=== PATIENT | female | born 1975 | race Caucasian/White ===

== ENCOUNTER 2025-03-10 06:06 | Inpatient (IN) ==
--- NOTE | 2025-02-20 12:57 | PAT Medication Instructions ---
Medication Instructions Date of Service February 20, 2025 Home Medications cholecalciferol (vitamin D3) 25 mcg (1,000 unit) tablet (Vitamin D3) 25 mcg PO DAILY levothyroxine 50 mcg tablet (Synthroid) 50 mcg PO QAM lisinopril 10 mg tablet 10 mg PO QAM loratadine 10 mg tablet (Claritin) 10 mg PO DAILY PRN Allergy Symptoms metformin 500 mg tablet 500 mg PO QAM tirzepatide 7.5 mg/0.5 mL subcutaneous pen injector (Mounjaro) 7.5 mg subcut WK DO NOT take the morning of surgery cholecalciferol (vitamin D3) 25 mcg (1,000 unit) tablet (Vitamin D3) 25 mcg PO DAILY lisinopril 10 mg tablet 10 mg PO QAM loratadine 10 mg tablet (Claritin) 10 mg PO DAILY PRN Allergy Symptoms metformin 500 mg tablet 500 mg PO QAM Take morning of surgery With a small sip of water, OTHERWISE NOTHING TO EAT OR DRINK AFTER MIDNIGHT: levothyroxine 50 mcg tablet (Synthroid) 50 mcg PO QAM Take evening before surgery loratadine 10 mg tablet (Claritin) 10 mg PO DAILY PRN Allergy Symptoms (if needed) STOP 7 days prior to surgery tirzepatide 7.5 mg/0.5 mL subcutaneous pen injector (Mounjaro) 7.5 mg subcut WK Other Notes If you have any questions please call us at [phone] or [phone] or [phone] or [phone]
--- NOTE | 2025-02-24 13:27 | Anesthesiology Consultation ---
Date of Service February 24, 2025 Assessment & Plan (1) Encounter for pre-operative examination: Chart Review Chart Review: Acceptable Risk for Surgery (pending surgeon ordered PCP clearance ) and Patient seen in Pre Admission Testing - Awaiting PCP clearance 02/28/25 (Dr Robert Mackey- JEREMY Santacruz)- please fax preop testing for PCP review - Check BSG AM DOS - Patient informed to stop Mounjaro 7 days prior to surgery. Patient usually takes Mounjaro on Fridays or Mondays. Recommended last dose of Mounjaro be scheduled 02/28/25. Will be off Mounjaro x 10 days prior to DOS on 03/10/25 Per PAT appt on 02/24/25, no recent illness/disease exposures, illness related symptoms, or recent illness/disease positive tests. Will leave to surgeon's discretion if preop Covid testing needed History Surgery Operation Date: 03/10/25 10:05 Proposed Procedures p L4-S1 Decompression and Fusion - Kb Fierro, Height/Weight Height: 5 ft 3 in Weight: 120.7 kg Allergies Allergy/AdvReac Type Severity Reaction Status Date / Time cefuroxime [From Ceftin] Allergy Mild Rash Verified 02/20/25 11:49 Medications Home Medications Medication Instructions Recorded Confirmed Last Taken cholecalciferol (vitamin D3) 25 25 mcg PO DAILY 02/20/25 02/20/25 Unknown mcg (1,000 unit) tablet (Vitamin D3) levothyroxine 50 mcg tablet 50 mcg PO QAM 02/20/25 02/20/25 Unknown (Synthroid) lisinopril 10 mg tablet 10 mg PO QAM 02/20/25 02/20/25 Unknown loratadine 10 mg tablet (Claritin) 10 mg PO DAILY PRN Allergy Symptoms 02/20/25 02/20/25 Unknown metformin 500 mg tablet 500 mg PO QAM 02/20/25 02/20/25 Unknown tirzepatide 7.5 mg/0.5 mL 7.5 mg subcut WK 02/20/25 02/20/25 Unknown subcutaneous pen injector (Mounjaro) Past Medical History Medical History Diabetes mellitus, type 2 Hypertension Hypothyroidism Nodule of right lung - followed with lung specialist in [place] (now only needs to follow PRN)--just monitoring- small Osteoarthritis Exercise / Class Metabolic Activity II 4-5 Yardwork/Stairs/Walk up hill (one flight of stairs - no chest pain or SOB ) Past Family History Family History Other No family history of adverse response to anesthesia Past Surgical History Surgical History History of bilateral tubal ligation History of open reduction and internal fixation (ORIF) procedure left ankle--hardware in place History of tonsillectomy History of tooth extraction History of total right knee replacement (TKR) (09/2023) @ [facility] History of wisdom tooth extraction Past Anesthesia History No Hx of Anesthesia Complications and No Family Hx of Anesthesia Complications History of PONV No Hx of PONV and No Hx of Motion Sickness Social History Smoking Status: Current every day smoker Smoking cigarettes per day: 10 cigs a day (advised on policy) Hx Alcohol Use: Yes alcohol intake frequency: holidays/special occasions only Hx Substance Use: No substance use type: does not use Review of Systems - Cough- occasional- chronic/stable- usually due to dry air Patient denies chest pain, shortness of breath, dyspnea on exertion, reflux, wheezing, palpitations. No hx of seizures, stroke, NM, apnea/snoring. No hx of blood clots or blood transfusions Physical Exam Vital Signs VITALS BP 136/83 P 89 TEMP 97.4 SP02 95% RESP 16 Constitutional no acute distress ENMT Mouth: no TMJ clicking Thyromental Distance: > or= 3.5 Finger Breadths (3.5) Mallampati Class: III Missing molars/side teeth Neck + thick neck; neck extension not limited Respiratory normal respiratory effort; no respiratory distress Auscultation: lungs clear to auscultation bilaterally and + diminished lung sounds (generalized throughout ); no wheezes Cardiovascular Rate/Rhythm: regular rate and regular rhythm Heart Sounds: no murmur Vessels: no carotid bruit Musculoskeletal Spine: + pain with cervical ROM Extremities: extremities normal to inspection Psychiatric Orientation: alert Lab Results Anesthesia Preop Results Results Anesthesia Widget: WBC 7.30 K/ul (4.8-10.8) 02/24/25 Hgb 14.0 g/dl (12.0-16.0) 02/24/25 Hct 42.6 % (37.0-47.0) 02/24/25 Plt 256 K/uL (130-400) 02/24/25 Na 137 mmol/L (136-145) 02/24/25 K 4.2 mmol/L (3.5-5.1) 02/24/25 Cl 105 mmol/L (98-107) 02/24/25 CO2 25 mmol/L (21-32) 02/24/25 BUN 12 mg/dl (6-23) 02/24/25 Creat 0.76 mg/dl (0.6-1.2) 02/24/25 Glucose Level 97 mg/dl (70-99(Fasting)) 02/24/25 PT 10.3 Seconds (9.0-12.0) 02/24/25 PTT 28 Seconds (21-31) 02/24/25 INR 1.0 (0.9-1.1) 02/24/25 HA1c 6.2 % (4.5-5.6) H 02/24/25 Urine Color Yellow 02/24/25 Urine Appearance Clear (Clear) 02/24/25 Urine pH 7.0 (4.5-7.5) 02/24/25 Urine Specific [place] 1.021 (1.000-1.030) 02/24/25 Urine Protein Negative (Negative) 02/24/25 Urine Glucose (UA) Negative (Negative) 02/24/25 Urine Ketones Negative (Negative) 02/24/25 Urine Blood 1+ (Negative) H 02/24/25 Urine Nitrite Negative (Negative) 02/24/25 Urine Bilirubin Negative (Negative) 02/24/25 Urine Urobilinogen Negative (Negative) 02/24/25 Urine Leukocyte Esterase Negative (Negative) 02/24/25 Urine WBC (Auto) 0-5 /hpf (0-5) 02/24/25 Urine RBC (Auto) 11-20 /hpf (0-2) H 02/24/25 Urine Hyaline Casts (Auto) 0-2 /lpf (0-2) 02/24/25 Urine Epithelial Cells (Auto) 0-2 /hpf (0-2) 02/24/25 Urine Bacteria (Auto) None Seen (None Seen) 02/24/25 Blood Type A Positive 02/24/25 Antibody Screen NEGATIVE 02/24/25 Testing Electrocardiogram Date: 02/24/25 Findings: + NSR @ (88bpm) Normal EKG per cardio Chest X-Ray Date: 02/24/25 Findings: + NAD FINDINGS: Heart size and pulmonary vasculature are normal. There is linear opacity at the left mid lung, likely scarring or atelectasis. No other consolidation or pleural effusion. No pneumothorax. Other Testing Chest CT 01/10/25= Stable scarring in the left lung. Millimetric pulmonary nodule stable. Consider 1 year follow-up per [facility] guidelines. Mild emphysema.
[2025-03-10] MEDS: LR 15ML/HR IV SCH (06:49)
[2025-03-10] MEDS: ACETAMINOPHEN 500 MG TAB PO SCH (06:49)
[2025-03-10] MEDS: CeleBREX 200 MG CAP PO SCH (06:49)
[2025-03-10] MEDS: GABAPENTIN 900 MG DOSE PO SCH (06:49)
[2025-03-10] MEDS: LR 60ML/HR IV SCH (06:50)
[2025-03-10] MEDS ORDERED: PROMETHAZINE HCL 6.25 MG in SODIUM CHLORIDE 0.9% 50 ML IV PRN (06:51)
[2025-03-10] MEDS ORDERED: ONDANSETRON INJ 2 MG/ML 2 ML VIAL IV PRN ×2 (06:51→11:27)
[2025-03-10] MEDS ORDERED: ATROPINE SULFATE 0.1 MG/ML 10ML SYR IV PRN (06:51)
[2025-03-10] MEDS ORDERED: HYDROmorphone INJ 1 MG/ML SYRINGE IV PRN ×2 (06:51→11:27)
[2025-03-10 06:52] LABS: Pregnancy Test, Serum Negative (Negative)
[2025-03-10] MEDS ORDERED: MIDAZOLAM HCL 1 MG/ML 2ML VIAL ONE (07:10)
[2025-03-10] MEDS ORDERED: ONDANSETRON INJ 2 MG/ML 2 ML VIAL ONE (07:10)
[2025-03-10] MEDS ORDERED: DEXAMETHASONE SOD INJ 4 MG/ML VIAL ONE (07:10)
[2025-03-10] MEDS ORDERED: PROPOFOL IV EMULSION 10 MG/ML 20 ML VIAL IV ONE ×2 (07:10→09:56)
[2025-03-10] MEDS ORDERED: LIDOCAINE 2% 2 ML VIAL/AMP(20MG/ML) INFIL ONE ×2 (07:10)
[2025-03-10] MEDS ORDERED: ROCURONIUM BROMIDE 10 MG/ML 5 ML VIAL IV ONE ×2 (07:11)
[2025-03-10] MEDS: BUPIVACAINE/EPINEPHRINE 0.25% 1:200,000 30 ML VIAL ONE (07:15)
--- NOTE | 2025-03-10 07:42 | History & Physical Bridge Note ---
Date of Service March 10, 2025 History & Physical Bridge Note I have examined the patient, reviewed the History & Physical and in the interval since the performance of the History & Physical I have noted the following changes of clinical significance: no changes noted
--- NOTE | 2025-03-10 07:43 | History & Physical Report ---
Date of Service March 10, 2025 Assessment & Plan (1) Multilevel lumbosacral spondylosis with radiculopathy: Plan: L4-S1 decompression and fusion History of Present Illness Chief Complaint: Back and leg pain Primary Care Provider: Robert Mackey This is a 49-year-old female presents with chronic persistent back and leg pain after failing course of nonoperative care is here for surgical intervention. Allergies Allergy/AdvReac Type Severity Reaction Status Date / Time cefuroxime [From Ceftin] Allergy Mild Rash Verified 02/20/25 11:49 Home Medications Medication Instructions Recorded Confirmed Type cholecalciferol (vitamin D3) 25 25 mcg PO DAILY 02/20/25 03/10/25 History mcg (1,000 unit) tablet (Vitamin D3) levothyroxine 50 mcg tablet 50 mcg PO QAM 02/20/25 03/10/25 History (Synthroid) loratadine 10 mg tablet (Claritin) 10 mg PO DAILY PRN Allergy Symptoms 02/20/25 03/10/25 History metformin 500 mg tablet 500 mg PO QAM 02/20/25 03/10/25 History tirzepatide 7.5 mg/0.5 mL 7.5 mg subcut WK 02/20/25 03/10/25 History subcutaneous pen injector (Mounjaro) losartan 50 mg tablet 50 mg PO QAM 03/04/25 03/10/25 History Past Med/Surg History Problem List (Updated 03/10/25 @ 07:43 by Kb Fierro, DO) Multilevel lumbosacral spondylosis with radiculopathy Encounter for pre-operative examination Medical History Diabetes mellitus, type 2 Hypertension Hypothyroidism Nodule of right lung - followed with lung specialist in [place] (now only needs to follow PRN)--just monitoring- small Osteoarthritis Surgical History History of bilateral tubal ligation History of open reduction and internal fixation (ORIF) procedure left ankle--hardware in place History of tonsillectomy History of tooth extraction History of total right knee replacement (TKR) (09/2023) @ [facility] History of wisdom tooth extraction Family History Other No family history of adverse response to anesthesia Social History Smoking Status: Current every day smoker Tobacco Type: Cigarettes Cigarettes Per Day: 10 cigs a day (advised on policy); Second Hand Exposure: No; Tobacco Cessation Education Requested by Patient: No Hx Alcohol Use: Yes Hx Substance Use: No Preferred Language: Beninese Communication Ability: Effective Litigation Counsel Required: No Beliefs That Will Affect Care: None Current Living Situation: Significant Other Current Living Situation Comment: Lives with boyfriend Other Information That Helps Us Care for You: No Feels Safe at Home: Yes Safety Concerns: Feels Safe At This Time Assistive Devices: None Physical Exam Physical Exam: Patient is alert and oriented Heart regular rhythm Lungs clear Results & Data Results & Data Vital Signs (Past 12 Hours) Vital Signs Temp Pulse Resp BP Pulse Ox O2 Del Method 03/10/25 06:33 36.9 C 98 H 18 142/91 H 92 Room Air
[2025-03-10] MEDS ORDERED: ePHEDrine sulfate 50 MG/5 ML SYR ONE (08:09)
[2025-03-10] MEDS ORDERED: PHENYLEPHRINE 100MCG/ML 5ML SYR ONE ×2 (08:10→08:36)
[2025-03-10] MEDS: ceFAZolin 330 MG/ML 1 GM VIAL ONE (08:30)
[2025-03-10] MEDS ORDERED: SUGAMMADEX SODIUM 200 MG/2 ML VIAL IV ONE (08:35)
[2025-03-10] MEDS: FLOSEAL HEMOSTATIC MATRIX 10ML TOP ONE (09:49)
--- NOTE | 2025-03-10 10:09 | Operative Report ---
Post Operative Report Pre & Post Diagnosis Operation Date: 03/10/25 07:45 Pre-Op Diagnosis: #1 multilevel lumbosacral spondylosis with radiculopathy #2 lumbar spondylolisthesis L4-5 #3 lumbar disc herniation L5-S1 #4 morbid obesity Post-Op Diagnosis: Same I identified the patient and participated in the time-out.: Yes Procedure Operation Date: 03/10/25 07:45 Actual Procedures #1 lumbar decompression bilaterally facetectomies and foraminotomies L3-L4, L4- L5 and L5-S1. #2 posterior spinal fusion L4-S1. #3 placement of posterior instrumentation L4-S1 using Harris. #4 interbody fusion L4-L5 L5-S1. #5 placement of Spira 15 x 26 mm x 2 at L4-L5 and 14 x 26 mm x 2 at L5-S1. #6 placement locally harvested morselized autograft and posterior gutters. #7 placement of Proteus combined with Koros in the posterior lateral gutters and os design interbody space. #8 application of versa wrap of the exposed dura. Surgeon Kb Fierro, DO Senior Web Architect Lori Aviles Estimated Blood Loss 250 Findings See Below The patient is 5 foot 3 weighing 119 kg with a BMI in excess of 46. Patient's body habitus and surgical pathology created significant technical difficulty with positioning exposure and the procedure itself. This had at least 40% increased operative time. Recommending a modifier 22. Specimens None Indications This is a 49-year-old female who presents publish diagnosis of failing course of nonoperative care is here for surgical invention. Description of Procedure Patient was met with identified informed consent obtained. Patient was then taken to the operative suite underwent patient placed in a prone position on the Slade table atop the Hamzah frame. All bony promises well-padded eyes inspected to ensure no external pressure placed upon them. This point the lumbar spine was prepped and draped in normal sterile fashion. Sharp dissection with the assistance of Bovie cautery performed down to and exposing the lamina and transverse processes of L4-5 and sacral ala bilaterally. From a [place] 5 fashion complete laminectomy of L5 L4 and partial laminectomy of L3 was performed. Bilateral medial facetectomies and foraminotomies were performed addressing severe neural compression as well as addressing the massive disc herniation at L5-S1 on the right. Patient's body habitus did create technical difficulty throughout the procedure required deepest retractors for longer instruments which were ordered to perform the procedure. Pedicle screws were then placed in L4-L5 and S1 levels bilaterally with assistance of fluoroscopy and appropriate size alan contoured and placed. By way of a transforaminal approach right discectomy of L5-S1 was performed endplates created to subcortical bleeding bone and a 14 x 26 mm Spira cage tapped into position. Then proceeded to the left transforaminal region at L5-S1. Again discectomy performed. Endplates guided to subcortical bleeding bone and a second 14 x 26 mm Spira cage tapped into position. Then proceeded L4-L5 belly the transforaminal approach on the left discectomy was performed. Endplates guided to subcortical bleeding bone. A 15 x 26 mm Spira cage tapped into position. Then proceeded to the right transforaminal region at L4-L5. Again discectomy performed. Endplates guided to subcortical bleeding bone. A second 15 x 26 mm Spira cage tapped in position. Please note all cages were packed with os design bone graft. The rods then compressed locked into position bilaterally. The transverse processes of L4-L5 and sacral ala burred to subcortical bleeding bone. Proteus combined with Koros and local autograft placed in posterolateral gutters. Versa wrap placed of exposed dura. 15 round JUANY drain inserted. The incision was then closed with 1 Vicryl in the fascia 2-0 Vicryl subcutaneously and 4-0 Monocryl for final skin closure. Steri-Strips sterile dressing placed. Patient waken taken PACU stable condition. Please note Lori Aviles was present of the entire procedure involved in patient positioning complex portion of the surgery and final skin closure. I attest to the content of the Intraoperative Record and any orders documented therein. Any exceptions are noted below.
--- NOTE | 2025-03-10 10:59 | Fluoroscopy Report ---
FL lumbar spine 2-3V CLINICAL HISTORY: L4-S1 DECOMPRESSION AND FUSION COMPARISON STUDY: None FLUOROSCOPY TIME: 17 seconds FLUOROSCOPY IMAGES: 2 EXPOSURE DOSE: 20 mGy FINDINGS: Fluoroscopy was provided for lower lumbar fusion. IMPRESSION: Intraoperative fluoroscopy. ACT 112: Negative or not required by law. Electronically signed by: Esequiel Carrillo M.D. 03/10/2025 10:57 AM
[2025-03-10] MEDS ORDERED: HYDROmorphone INJ 0.5 MG/0.5 ML SYR IV PRN (11:27)
[2025-03-10] MEDS ORDERED: PHARMACY GLYCEMIC MGMT CONSULT PRN (11:27)
[2025-03-10] MEDS ORDERED: LORATADINE 10 MG TAB PO PRN (11:27)
[2025-03-10] MEDS ORDERED: SOD PHOSPHATE/SOD BIPHOSPHATE ENEMA 132 ML BTL PR PRN (11:27)
[2025-03-10] MEDS ORDERED: DO NOT ADMINISTER PNEUMOCOCCAL VACCINE PRN (11:27)
[2025-03-10] MEDS ORDERED: NALOXONE HCL 0.4 MG/1 ML VIAL/CARP IV PRN (11:27)
[2025-03-10] MEDS ORDERED: ACETAMINOPHEN 1,000 MG/100 ML VIAL IV PRN (11:27)
[2025-03-10] MEDS ORDERED: DO NOT ADMINISTER FLU VACCINE PRN (11:27)
[2025-03-10] MEDS ORDERED: LORazepam Inj 0.5 MG in SYRINGE 0.25 ML IV PRN (11:27)
[2025-03-10] MEDS ORDERED: LORazepam 0.5 MG TAB PO PRN (11:27)
[2025-03-10] MEDS ORDERED: PROMETHAZINE 12.5 MG/50.5 ML BAG IV PRN (11:27)
[2025-03-10] MEDS ORDERED: NON-FORMULARY MEDICATION (Tirzepatide [Mounjaro] 7.5 mg/0.5 mL Pen Injector) SQ SCH (11:27)
[2025-03-10] MEDS ORDERED: diphenhydrAMINE Capsule 25 MG CAP PO PRN (11:27)
[2025-03-10] MEDS ORDERED: MAGNESIUM HYDROXIDE SUSP 30 ML UDC PO PRN (11:27)
[2025-03-10] MEDS ORDERED: METOCLOPRAMIDE HCL INJ 5 MG/ML 2 ML VIAL IV PRN (11:27)
[2025-03-10] MEDS ORDERED: ONDANSETRON 4 MG OD TAB PO PRN (11:27)
[2025-03-10] MEDS ORDERED: ACETAMINOPHEN 500 MG TAB PO PRN (11:27)
[2025-03-10] MEDS ORDERED: ALUMINUM/MAGNESIUM SUSP 30 ML UDC PO PRN (11:27)
--- NOTE | 2025-03-10 11:45 | Hospitalist Consultation ---
Date of Consultation March 10, 2025 Assessment & Plan (1) Multilevel lumbosacral spondylosis with radiculopathy: (2) S/P spinal surgery: Patient is a 49-year-old female with past medical history significant for DM type II, hypothyroidism, vitamin D deficiency, peripheral vascular disease, asthma, tobacco use and HTN who is being seen in consultation for routine postoperative medical management after undergoing elective L4-S1 decompression and fusion performed by Dr. Fierro earlier today. Per primary service for pain control, wound care, anticoagulation and activities. Continue incentive spirometry, PT/OT when appropriate as per primary service. Monitor H/H for acute blood loss anemia and transfuse blood products PRN. Preop Hgb = 14. (3) Hypertension: Borderline hypotensive postop. Hold losartan for now and reassess in AM. (4) Diabetes mellitus, type 2: Hold home metformin, Mounjaro. SSI regimen while inpatient. Hgb A1c 6.2% last month. Follow BSG checks ACHS. (5) Hypothyroidism: Continue levothyroxine, check TSH/free T4 in AM. (6) Tobacco use disorder: Smokes at least 1ppd for "several years." Requesting nicotine patch - ordered. Cessation encouraged. (7) Vitamin D deficiency: Continue vitamin D supplementation, check 25-OH vit D level in AM. DVT Prophylaxis: As per primary service Code Status: FULL CODE PCP: Robert Mackey DO [[place]] Disposition: DC planning as per primary service Thank you for this consultation. We will follow the patient with you during their hospital stay. You can reach a member of the [facility] 19/12 via [employer]. Patient seen in collaboration with Dr. Gonzalez. Please see addendum. I spent a total of 40 minutes coordinating, documenting, and providing care for this patient excluding time spent in the performance of separately billed services or time spent by another provider/QHP. This included personally reviewing all current laboratories and imaging studies, medical reconciliation, outpatient chart review and discussion with specialists. This chart was completed in part utilizing Speech Voice Recognition Software. Grammatical errors, random word insertions, pronoun errors, and incomplete sentences are an occasional consequence of this system due to software limitations, ambient noise, and hardware issues. Any formal questions or concerns about the content, text, or information contained within the body of this dictation should be directly addressed to the provider for clarification. Supervising Physician Co-Signing Physician Notes Patient seen and examined at bedside. POD 0 from L4-S1 decompression. Doing well post op, some pain. On exam, strong tobacco odor noted, drain noted draining blood appropriately, s/p procedure. Patient POD 0 from lumbar decompression. Trend Hgb, WBC, creatinine post op. Incentive spirometer, nicotine patch ordered. Disposition per ortho spine, appreciate opportunity to assist with patient care. I have seen and discussed the case with the collaborating advanced practitioner. I agree with the above H&P. I have reviewed and confirmed the patients medical history, the findings on physical examination, and the patients diagnosis and treatment plan with Landry ROSE and agree with the information documented. I spent a total of 20 minutes coordinating, documenting, and providing care for this patient excluding time spent in the performance of separately billed services. All of the aforementioned completed outside of collaborating with the assigned advanced practitioner for a full treatment plan. I have reviewed the advanced practitioner's documentation, and I agree with, and take responsibility for the plan of care History of Present Illness Reason for Consultation: Routine postoperative medical management Requesting Physician: Kb Fierro DO Attending Physician: Kb Fierro DO History of Present Illness Patient is a 49-year-old female with past medical history significant for DM type II, hypothyroidism, vitamin D deficiency, peripheral vascular disease, asthma, tobacco use and HTN who is being seen in consultation for routine postoperative medical management after undergoing elective L4-S1 decompression and fusion performed by Dr. Fierro earlier today. History obtained from the patient and associated chart review. Feeling well postoperatively, pain well-controlled. BLE paresthesias that were present prior to surgery have now resolved. Tolerating sips of water without issue. Denies any chest pain, SOB, N/V or abdominal pain. Has Rodriguez catheter in place. Has not noticed that she is passing any flatus yet. Describes mild throat pain from ET tube placement. Smokes 1ppd. Requesting nicotine patch. Rare alcohol use. Allergies Allergy/AdvReac Type Severity Reaction Status Date / Time cefuroxime [From Ceftin] Allergy Mild Rash Verified 02/20/25 11:49 Home Medications Medication Instructions Recorded Confirmed Type cholecalciferol (vitamin D3) 25 25 mcg PO DAILY 02/20/25 03/10/25 History mcg (1,000 unit) tablet (Vitamin D3) levothyroxine 50 mcg tablet 50 mcg PO QAM 02/20/25 03/10/25 History (Synthroid) loratadine 10 mg tablet (Claritin) 10 mg PO DAILY PRN Allergy Symptoms 02/20/25 03/10/25 History metformin 500 mg tablet 500 mg PO QAM 02/20/25 03/10/25 History tirzepatide 7.5 mg/0.5 mL 7.5 mg subcut WK 02/20/25 03/10/25 History subcutaneous pen injector (Mounjaro) losartan 50 mg tablet 50 mg PO QAM 03/04/25 03/10/25 History Patient History Medical History Osteoarthritis Hypertension Diabetes mellitus, type 2 Hypothyroidism Nodule of right lung - followed with lung specialist in [place] (now only needs to follow PRN)--just monitoring- small Surgical History History of bilateral tubal ligation History of open reduction and internal fixation (ORIF) procedure left ankle--hardware in place History of wisdom tooth extraction History of tooth extraction History of tonsillectomy History of total right knee replacement (TKR) (09/2023) @ [facility] Family History Other No family history of adverse response to anesthesia Social History Smoking Status: Current every day smoker Tobacco Type: Cigarettes Cigarettes Per Day: 10 cigs a day (advised on policy); Second Hand Exposure: No; Tobacco Cessation Education Requested by Patient: No Hx Alcohol Use: Yes Hx Substance Use: No Preferred Language: Monegasque Communication Ability: Effective Clinical Staff Pharmacist Required: No Beliefs That Will Affect Care: None Current Living Situation: Significant Other Current Living Situation Comment: Lives with boyfriend Other Information That Helps Us Care for You: No Feels Safe at Home: Yes Safety Concerns: Feels Safe At This Time Assistive Devices: None Review of Systems Review of Systems: At least ten systems reviewed and negative, except as noted in the HPI. Physical Exam Physical Exam: General: Obese F, NAD, sitting up in bed, A&Ox3, significant other at bedside, strong tobacco odor in room HEENT: Normocephalic, atraumatic, external ear and nose normal, oropharynx normal Respiratory: Normal respiratory effort, CTAB Cardiovascular: RRR, normal peripheral pulses, no BLE edema, SCDs/TEDs in place on BLE Abdomen/GI: Normal bowel sounds, soft, nontender to palpation in all quadrants : Rodriguez catheter intact and draining clear yellow urine Extremities/Musculoskeletal: No cyanosis or clubbing, able to actively move all extremities, surgical dressing C/D/I, JUANY drain x1 intact and draining serosanguineous output Neurologic: No overt focal deficits, CN's II-XI not formally tested but appear grossly intact bilaterally Results & Data Results & Data Vital Signs (Past 12 Hours) Vital Signs Temp Pulse Resp BP Pulse Ox O2 Del Method O2 Flow Rate 03/10/25 10:55 88 13 135/74 98 Nasal Cannula 2 03/10/25 10:45 36.7 C 87 17 129/71 99 Oxymask 2 03/10/25 10:35 96 H 18 109/79 99 Oxymask 4 03/10/25 10:25 100 H 20 101/75 98 Oxymask 8 03/10/25 10:19 36.9 C 106 H 12 116/71 97 Oxymask 8 03/10/25 06:33 36.9 C 98 H 18 142/91 H 92 Room Air Diagnostic Findings Lumbar Spine X-Ray 03/10/25 07:45 FL lumbar spine 2-3V CLINICAL HISTORY: L4-S1 DECOMPRESSION AND FUSION COMPARISON STUDY: None FLUOROSCOPY TIME: 17 seconds FLUOROSCOPY IMAGES: 2 EXPOSURE DOSE: 20 mGy FINDINGS: Fluoroscopy was provided for lower lumbar fusion. IMPRESSION: Intraoperative fluoroscopy. ACT 112: Negative or not required by law. Electronically signed by: Esequiel Carrillo M.D. 03/10/2025 10:57 AM
[2025-03-10] MEDS: SODIUM CHLORIDE 0.9% 1,000 ML IV SCH (11:46)
[2025-03-10] MEDS: LANTUS PER UNIT CHARGE SC ONE (12:40)
[2025-03-10] MEDS: NICOTINE 21 MG/24 HR TDSY TD SCH (12:40)
[2025-03-10] MEDS: CLINDAMYCIN/D5W 600 MG/50 ML BAG IV SCH (12:40)
--- NOTE | 2025-03-10 12:57 | Anesthesiology Progress Note ---
Date of Service March 10, 2025 Anesthesia Post Procedure Vital Signs Vital Signs: Temp Pulse Pulse Resp BP BP Pulse Ox 03/10/25 12:46 36.5 C 91 H 17 112/71 92 03/10/25 11:47 36.5 C 89 16 110/72 94 03/10/25 11:45 03/10/25 11:27 36.4 C L 86 16 116/77 94 03/10/25 10:55 88 13 135/74 98 03/10/25 10:45 36.7 C 87 17 129/71 99 03/10/25 10:35 96 H 18 109/79 99 03/10/25 10:25 100 H 20 101/75 98 03/10/25 10:19 36.9 C 106 H 12 116/71 97 03/10/25 06:33 36.9 C 98 H 18 142/91 H 92 O2 Del Method O2 Flow Rate 03/10/25 12:46 Room Air 03/10/25 11:47 Room Air 03/10/25 11:45 Room Air 03/10/25 11:27 Room Air 03/10/25 10:55 Nasal Cannula 2 03/10/25 10:45 Oxymask 2 03/10/25 10:35 Oxymask 4 03/10/25 10:25 Oxymask 8 03/10/25 10:19 Oxymask 8 03/10/25 06:33 Room Air Pain Intensity Back: Pain Intensity: 3 Transfer of Care Handoff Completed per policy Notes Mental Status: alert / awake / arousable and participated in evaluation Patient Amnestic to Procedure: Yes Nausea / Vomiting: adequately controlled Pain: adequately controlled Airway Patency, RR, SpO2: stable & adequate BP & HR: stable & adequate Hydration State: stable & adequate Anesthetic Complications: no major complications apparent and Pt Satisfied with anesthetic care
--- NOTE | 2025-03-10 13:24 | Pharmacy Report ---
Pharmacy Glycemic Short Note 2 - Date of Service March 10, 2025 - Glycemic Short BSG Results (Last 24 hours): 03/10/25 03/10/25 03/10/25 06:32 10:22 11:18 POC Glucose 121 H 149 H 149 H OUTPATIENT ANTIDIABETIC REGIMEN: * metformin 500 mg carlos pruett weekly ASSESSMENT: * 49 year old s/p surgery, POD 0 - pharmacy consulted for glycemic management. Patient received IV steroids intraoperatively, therefore anticipate steroid induced hyperglycemia. Will start novolog weight based stress 2 dosing and add on conservative lantus dose x 1 now to cover steroid effects. PLAN FOR INPATIENT GLYCEMIC CONTROL: * Hold outpatient oral diabetes medications * Basal insulin * Lantus 15 units x 1 * Bolus insulin * NovoLog per scale ACHS or Q6hrs while NPO * Goal Range: Low 110 mg/dL - High 140 mg/dL * Correction Factor: 20 mg/dL/unit * Nutritional / Prandial insulin per carb ratio of 1 unit per 7 grams CHO consumed
[2025-03-10] MEDS: INSULIN ASPART PER UNIT CHARGE SC SCH (13:36)
[2025-03-10] MEDS: ADVANCED PROBIOTIC 625 MG CAPSULE PO SCH (21:01)
[2025-03-10] MEDS: DOCUSATE SODIUM/SENNA 50/8.6MG TAB PO SCH (21:02)
[2025-03-11] MEDS: POLYETHYLENE (MIRALAX) 17 GM PACK PO SCH (06:01)
[2025-03-11] MEDS: LEVOTHYROXINE SODIUM 50 MCG TABLET PO SCH (06:01)
[2025-03-11 06:30] LABS: Hematocrit (blood only) 34.0 % (37.0-47.0); Hemoglobin 11.6 g/dl (12.0-16.0); Immature Granulocytes # (auto) 0.06 K/uL (0.01-0.20); Immature Granulocytes % (auto) 0.4 %; Mean Corpuscular Hemoglobin 32.4 pg (25.0-34.0); Mean Corpuscular Volume 95.0 fL (80.0-100.0); Platelet Count 195 K/uL (130-400); RDW Standard Deviation 49.2 fL (36.4-46.3); Red Blood Count 3.58 M/uL (4.20-5.40); White Blood Count 14.37 K/ul (4.8-10.8)
[2025-03-11 06:56] LABS: Anion Gap 7.0 (3-11); Blood Urea Nitrogen 14.0 mg/dl (6-23); Calcium 8.2 mg/dl (8.6-10.3); Carbon Dioxide 22.0 mmol/L (21-32); Chloride 106.0 mmol/L (98-107); Creatinine Clr Calc Pharmacy 117.6 ml/min; Glucose 141.0 mg/dl (70-99(Fasting)); Potassium 4.3 mmol/L (3.5-5.1); Sodium 135.0 mmol/L (136-145)
[2025-03-11 07:05] LABS: Thyroid Stimulating Hormone 1.318 uIu/ml (0.300-4.500)
[2025-03-11] MEDS: CHOLECALCIFEROL 25 MCG (1000 UNITS) TAB PO SCH (07:23)
[2025-03-11] MEDS: REMOVE NICODERM PATCH SCH (07:23)
[2025-03-11] MEDS: dexAMETHasone 6 MG in SYRINGE 0 ML IV SCH (07:23)
[2025-03-11] MEDS: LANTUS PER UNIT CHARGE SC SCH (08:36)
[2025-03-11] MEDS ORDERED: LOSARTAN POTASSIUM 50 MG TAB PO SCH (09:00)
--- NOTE | 2025-03-11 10:14 | Orthopedic Progress Note ---
Date of Service March 11, 2025 Assessment & Plan (1) Multilevel lumbosacral spondylosis with radiculopathy: Plan: At this time continue physical therapy monitor JUANY output over discharge over the next few days. Admission and Anticipated Discharge Date Admission Date: March 10, 2025 Subjective Patient's back pain is controlled. Leg pain markedly improved. Patient has been ambulating halls. Physical Exam Physical Exam: Patient is in the chair at bedside. She is comfortable. The strength testing. Results & Data Vital Signs (Past 12 Hours) Vital Signs Temp Pulse Resp BP Pulse Ox O2 Del Method 03/11/25 07:35 Room Air 03/11/25 07:19 36.8 C 87 16 118/85 96 Room Air 03/11/25 03:00 37.0 C 84 18 120/76 95 Room Air 03/10/25 23:00 36.8 C 80 18 147/75 H 96 Room Air Queries Orthopedic Spine Obesity: Yes
--- NOTE | 2025-03-11 11:51 | Hospitalist Progress Note ---
Date of Service March 11, 2025 Assessment & Plan (1) Multilevel lumbosacral spondylosis with radiculopathy: (2) Acute postoperative anemia due to expected blood loss: (3) S/P spinal surgery: (4) Hypertension: (5) Diabetes mellitus, type 2: (6) Hypothyroidism: (7) Tobacco use disorder: (8) Vitamin D deficiency: (9) Morbid obesity: Plan Patient overall moving well status post lumbar surgery Continue to monitor blood loss Continue vitamin D replacement Calcium supplementation Continue to monitor glucose and cover with insulin Continue to hold losartan, monitor blood pressure, anticipate will need to resume antihypertensive medication once patient becomes further away from her immediate surgical intervention Pain control as per attending Bowel regimen Admission and Anticipated Discharge Date Admission Date: March 10, 2025 Subjective Patient reports doing well. Pain is well-controlled. Has been up and ambulating in her room into the bathroom. Physical Exam Physical Exam: Constitutional: Alert, sitting in chair, easily stood up out of chair using her walker HEENT: Mucous membranes moist. Lungs: Clear to auscultation, decreased, no wheezes rales or rhonchi CV: S1-S2, regular Abdomen: Soft, nontender, nondistended Extremities: No significant edema Musculoskeletal: Surgical dressing dry, JUANY drain and surgical wound with sanguinous fluid in drain Neuro: No focal deficits Psych: Cooperative, normal mood Results & Data Results & Data Vital Signs (Past 12 Hours) Vital Signs Temp Pulse Resp BP Pulse Ox O2 Del Method 03/11/25 07:35 Room Air 03/11/25 07:19 36.8 C 87 16 118/85 96 Room Air 03/11/25 03:00 37.0 C 84 18 120/76 95 Room Air Diagnostic Findings Reviewed imaging, laboratory and diagnostic studies. Pertinent findings as below. WBCs 14.3 Hemoglobin 11.6, significantly decreased compared to preoperative Electrolytes stable Creatinine 0.73 Calcium 8.2 Vitamin D 9.9 Glucose reviewed Estimated blood loss including from JUANY drain ~750 cc
[2025-03-11] MEDS: CALCIUM GLUCONATE 1,000 MG/60 ML BAG IV SCH (13:18)
[2025-03-11] MEDS: CALCIUM 600MG + VIT D 400 IU TAB PO SCH (19:55)
[2025-03-12 07:52] LABS: Hematocrit (blood only) 36.4 % (37.0-47.0); Hemoglobin 12.2 g/dl (12.0-16.0); Mean Corpuscular Hemoglobin 31.2 pg (25.0-34.0); Mean Corpuscular Volume 93.1 fL (80.0-100.0); Platelet Count 222 K/uL (130-400); RDW Standard Deviation 48.9 fL (36.4-46.3); Red Blood Count 3.91 M/uL (4.20-5.40); White Blood Count 11.40 K/ul (4.8-10.8)
[2025-03-12] MEDS: FAMOTIDINE 20 MG TAB PO PRN (07:53)
[2025-03-12 08:10] LABS: Anion Gap 7.0 (3-11); Blood Urea Nitrogen 17.0 mg/dl (6-23); Calcium 8.8 mg/dl (8.6-10.3); Carbon Dioxide 24.0 mmol/L (21-32); Chloride 106.0 mmol/L (98-107); Creatinine Clr Calc Pharmacy 113.0 ml/min; Glucose 109.0 mg/dl (70-99(Fasting)); Potassium 4.0 mmol/L (3.5-5.1); Sodium 137.0 mmol/L (136-145)
--- NOTE | 2025-03-12 08:18 | Orthopedic Progress Note ---
Date of Service March 12, 2025 Assessment & Plan (1) Acute postoperative anemia due to expected blood loss: Plan: At this time we will continue physical therapy monitor JUANY output anticipate discharge home tomorrow. Admission and Anticipated Discharge Date Admission Date: March 10, 2025 Subjective Patient's back pain is controlled leg symptoms markedly improved. She is tolerating therapy and ambulation well. Physical Exam Physical Exam: Patient is in the chair at the bedside. She is comfortable. Distracted testing. Results & Data Vital Signs (Past 12 Hours) Vital Signs Temp Pulse Resp BP Pulse Ox O2 Del Method 03/11/25 23:00 37.0 C 83 18 156/77 H 97 Room Air Queries Orthopedic Spine Obesity: Yes
[2025-03-12] MEDS: LANTUS PER UNIT CHARGE SC SCH (08:34)
--- NOTE | 2025-03-12 12:57 | Pharmacy Report ---
Pharmacy Glycemic Short Note 2 - Date of Service March 12, 2025 - Glycemic Short BSG Results (Last 24 hours): 03/11/25 03/11/25 03/12/25 16:38 20:37 07:07 Glucose 109 H POC Glucose 142 H 117 H 03/12/25 03/12/25 07:20 11:25 Glucose POC Glucose 112 H 85 OUTPATIENT ANTIDIABETIC REGIMEN: * metformin 500 mg carlos pruett weekly ASSESSMENT: 03/12: * Daniel received a total of 39 units of insulin yesterday (15 units were basal and 24 units were bolus). BSGs were mostly in goal range yesterday. * Fasting BSG was 112mg/dL this morning. Patient reportedly c/o painful IV site so the IV was removed--dexamethasone was discontinued (no dose given today). Lantus was discontinued since no further steroids will be given. * Lunch BSG was only 85mg/dL so bolus insulin parameters were loosened significantly. 03/10 * 49 year old s/p surgery, POD 0 - pharmacy consulted for glycemic management. Patient received IV steroids intraoperatively, therefore anticipate steroid induced hyperglycemia. Will start novolog weight based stress 2 dosing and add on conservative lantus dose x 1 now to cover steroid effects. PLAN FOR INPATIENT GLYCEMIC CONTROL: * Hold outpatient diabetes medications * Basal insulin * none * Bolus insulin * NovoLog per scale ACHS or Q6hrs while NPO * Goal Range: Low 110 mg/dL - High 140 mg/dL * Correction Factor: 35 mg/dL/unit * Nutritional / Prandial insulin per carb ratio of 1 unit per 15 grams CHO consumed
--- NOTE | 2025-03-12 13:56 | Hospitalist Progress Note ---
Date of Service March 12, 2025 Assessment & Plan (1) Multilevel lumbosacral spondylosis with radiculopathy: (2) Acute postoperative anemia due to expected blood loss: (3) S/P spinal surgery: (4) Hypertension: (5) Diabetes mellitus, type 2: (6) Hypothyroidism: (7) Tobacco use disorder: (8) Vitamin D deficiency: (9) Morbid obesity: Plan Patient overall moving well status post lumbar surgery Continue to monitor blood loss Continue vitamin D replacement Calcium supplementation Continue to monitor glucose and cover with insulin Continue to hold losartan, monitor blood pressure, anticipate will need to resume antihypertensive medication once patient becomes further away from her immediate surgical intervention Pain control as per attending Bowel regimen 03/12 resume Losartan Hg stable overall doing good Ming Mary MD Admission and Anticipated Discharge Date Admission Date: March 10, 2025 Subjective seen resting in chair, comfortable states she feels fine overall ambulating in the hallways no chest pain, dizziness, shortness of breath no other symptoms Review of Systems Review of Systems: all noted and negative except for above Physical Exam Physical Exam: General- oriented x 3, not in distress, speaks in sentences with no effort or accessory muscle use Eyes- anicteric Neck- no JVD Lungs- clear breath sounds bilaterally, no rales/wheezes Heart- normal rate, regular rhythm; no murmurs Abdomen- normal bowel sounds, nondistended, soft, nontender Back-dressing in place, no bleeding or discharge drain in place with sero-sanguinous fluid Extremities- no pretibial edema, no calf tenderness Neuro- alert, oriented x 3; no gross focal neurologic deficits Skin- warm & dry Results & Data Results & Data Vital Signs (Past 12 Hours) Vital Signs Temp Pulse Resp BP Pulse Ox O2 Del Method 03/12/25 13:03 150/84 H 03/12/25 11:30 36.6 C 80 15 155/89 H 100 Room Air 03/12/25 08:00 36.6 C 101 H 16 146/80 H 96 Room Air
[2025-03-12] MEDS: LOSARTAN POTASSIUM 50 MG TAB PO ONE (14:15)
[2025-03-13 07:30] VITALS: BP 111/71; PULSE 90; RESP 18; TEMP 98.4; O2SAT 96
--- NOTE | 2025-03-13 08:44 | Discharge Summary ---
Date of Service March 13, 2025 Admission HPI Per Admitting Provider This is a 49-year-old female presents with chronic persistent back and leg pain after failing course of nonoperative care is here for surgical intervention. Admission Exam (Per Admitting) Constitutional WD/WN, vitals as above Eyes normal visual torres by confrontation ENMT external ear and nose normal, oropharynx normal Neck normal visual inspection Respiratory normal respiratory effort Cardiovascular Extremities: normal capillary refill Gastrointestinal (Abdomen) Inspection/Auscultation: abdomen normal to inspection Musculoskeletal Spine: + pain with thoraco-lumbar ROM Extremities: extremities normal to inspection and strength 5/5 throughout Skin no rashes, warm and dry Neurologic normal touch/pain/proprioception and moves all extremities Psychiatric A+Ox3, euthymic affect Eye Contact: good eye contact Discharge Data Consultations 03/10/25 11:27 Consult Hospitalist Routine Procedures Performed Operation Date: 03/10/25 07:45 Actual Procedures p L4-S1 Decompression and Fusion(Not Applicable) - Kb Fierro DO Hospital Course (1) Multilevel lumbosacral spondylosis with radiculopathy: Daniel is being discharged home on postoperative day 3 status post L4-S1 decompression and fusion. She has had an uneventful hospital course. She has had a bowel movement. JUANY drain output last shift was 20 cc. She is ambulating in physical therapy plus the hallways. Pain is controlled. Discharge Instructions ACTIVITY RECOMMENDATIONS: SELF CARE INSTRUCTIONS AFTER THORACIC/LUMBAR FUSIONS 1. You may walk to your tolerance. It is good exercise for your legs and back. Expect some back and intermittent leg aches and pains. 2. You may perform "counter-top" level activities (make a sandwich, amarilys with a project, etc.). 3. No bending or lifting of more than 10 pounds or back twisting of any nature (roll like a log when turning in bed). 4. You may ride in a car for 20-30 minutes at a time. No driving until after your first visit with your doctor. 5. Frequent changes of position and restricting sitting to 30 minutes at a time will help limit the amount of back spasms and stiffness you may experience. 6. You may discontinue the use of ambulatory aids (cane, crutches, etc.) once your strength and confidence allow. 7. You may plate grainer apprentice the shower and let water strike your incision when you arrive home at least once daily. Do not take a tub bath, sit in a hot tub or go into a swimming pool until after your first recheck in the office. 8. You may resume previous diet. SPECIAL CARE INSTRUCTIONS: VERY IMPORTANT TO READ AND REVIEW A. Your surgical incision has been closed with a cosmetic suture under the skin that will dissolve in about 6 weeks. In 14 days, you can use a pair of clean scissors and cut the suture that is left outside of the skin at the ends of your incision. 1. The small skin tapes can be removed 7 days after surgery if they have not fallen off by that point. 2. You may keep the wound open to air as much as possible to promote healing after post-op day number 5 unless told otherwise by your doctor. 3. If you think the wound looks like it is becoming infected (redness or worsening drainage) and/or you are experiencing fever, chill or worsening back pain and muscle spasms, contact the office so that we may evaluate you as soon as possible. B. Complications are uncommon, but please contact us if you have any signs or symptoms of: 1. wound infection (fever higher than 102.5 degrees F, redness, separation of wound, drainage, or increasing pain from the incision) 2. blood clots in legs (pain, swelling, redness and warmth in legs) 3. urinary tract infection (fever higher than 102.5 degrees F, burning upon urination or increased frequency of urination) 4. nerve problems (inability to walk on your toes or heels, numbness, loss of bowel or bladder control) 5. any other symptoms that concern you C. Please call the office at if you have any concerns or questions about your operation or recovery. D. No smoking! Smoking drastically decreases the chance of a solid fusion. E. Do not take any anti-inflammatory medications (Indocin, Advil, Motrin, Aspirin, Naprosyn, etc.) as these may inhibit the chance of a solid fusion. Tylenol is okay to take for pain. MANAGING PAIN AFTER SPINAL SURGERY 1. Narcotic medication is intended for short-term use and will be provided for surgical pain. Surgical pain usually lasts for a period of 4-6 weeks. Narcotic medication includes Percocet, Vicodin, Darvocet, Tylenol #3 or Lortab. 2. Longer-term pain is more appropriately treated with non-narcotic medication such as Tylenol ES. 3. Muscle spasm is not appropriately treated with narcotics. Muscle relaxers such as Soma, Flexeril or Skelaxin can be used along with Tylenol ES. 4. Remember that we all live with some "aches and pains". This is not unusual or uncommon after an injury or as we get older. a. Back pain is expected and may include muscle spasms for 4 to 6 weeks after surgery. The pain should gradually improve. If the pain worsens for no apparent reason, please contact the office. b. Intermittent leg pain may also be experienced and should not be concerned about unless it worsens for no apparent reason. If so, please contact the office. 5. We will provide appropriate medication within the normal guidelines of their prescribed use. We will also be very cautious and aware of potential abuse and extended duration of patients' medication needs. a. Pain medications are for your comfort and to assist with sleep and rest so that the tissue can heal. They are not provided in order to return to normal activity and should not be used through the day. To do so or worsening pain at night can result from ongoing tissue damage and development of tolerance to the prescribed medicine. 6. Please allow 2-3 days to process refills. Prescriptions will not be mailed but must be picked up at the office. FOLLOW UP VISIT: Keep your scheduled follow-up appointment. Any questions, please call the office at .
[2025-03-13 10:24] LABS: Hematocrit (blood only) 36.6 % (37.0-47.0); Hemoglobin 12.1 g/dl (12.0-16.0); Immature Granulocytes # (auto) 0.03 K/uL (0.01-0.20); Immature Granulocytes % (auto) 0.3 %; Mean Corpuscular Hemoglobin 31.1 pg (25.0-34.0); Mean Corpuscular Volume 94.1 fL (80.0-100.0); Platelet Count 222 K/uL (130-400); RDW Standard Deviation 48.9 fL (36.4-46.3); Red Blood Count 3.89 M/uL (4.20-5.40); White Blood Count 9.35 K/ul (4.8-10.8)
== END 2025-03-13 12:23 | disposition home or self-care (01) | DRG 427 ==
LOC: ASU 06:06 → 3E 10:13